=== PATIENT | male | born 2000 | race Caucasian/White ===

== ENCOUNTER → 2020-05-01 14:41 | Outpatient (BNVA) | payer OTHER, SELFPAY | PROVIDERS: PCP Pediatrics; Referring Provider Pediatrics; Visit Provider Physician Assistant | DX: K60.2 Anal fissure, unspecified (principal) | CPT/HCPCS: 99203 ==

== ENCOUNTER → 2020-05-19 14:51 | Outpatient (BNVA) | payer OTHER, SELFPAY | PROVIDERS: PCP Pediatrics; Referring Provider Pediatrics; Visit Provider Physician Assistant | DX: R19.5 Other fecal abnormalities (principal) | CPT/HCPCS: 99212 ==

== ENCOUNTER → 2020-08-25 14:40 | Outpatient (BNVA) | payer OTHER, SELFPAY | PROVIDERS: PCP Pediatrics; Referring Provider Pediatrics; Visit Provider Internal Medicine Gastroenterology ==

== ENCOUNTER 2021-06-25 14:14 | Outpatient (REF) | payer OTHER, SELFPAY | END 2021-06-25 14:15 | disposition home or self-care (01) | LOC: HO.LAB 14:14 | PROVIDERS: Visit Provider Internal Medicine | DX: Z20.822 Contact with and (suspected) exposure to COVID-19 (principal) | CPT/HCPCS: C9803; U0003; U0005 ==

== ENCOUNTER 2021-11-24 15:05 | Emergency (ER) | payer OTHER, SELFPAY ==
[2021-11-24 15:09] VITALS: BP 125/87; PULSE 100; RESP 18; TEMP 37.2; O2SAT 99; BMI 34.8
[2021-11-24 15:27] LABS: MANUAL DIFF FLAG NO
[2021-11-24 15:29] LABS: Appearance Urine HAZY; Color Urine YELLOW; Glucose Urine UA NEG (NEG); Leukocyte Esterase Urine NEG (NEG); Nitrite Urine NEG (NEG); PH 5.5 (5.0-8.0); Specific Gravity - Urine >= 1.030 (1.005-1.025); Urine Blood NEG (NEG); Urine Ketones NEG (NEG); Urine Protein NEG (NEG-TRACE)
[2021-11-24 15:31] LABS: Basophils Percent Auto 0.2 % (0-2); Eosinophils Absolute Auto 0.1 X10*3/uL (0.0-0.4); Eosinophils Percent Auto 0.8 % (0-4); Hemoglobin 15.7 g/dl (14.0-18.0); Imm Gran Abs Auto 0.05 X10*3/uL (0.00-0.03); Imm Gran Pct Auto 0.4 % (0.0-0.4); Lymphocytes Absolute Auto 0.8 X10*3/uL (1.2-4.9); Lymphocytes Percent Auto 6.3 % (20-40); Mean Corpuscular HGB Conc 33.4 g/dl (31.0-36.0); Mean Corpuscular Hemoglobin 30.2 pg (27.0-33.0); Mean Corpuscular Volume 90.4 fL (80.0-98.0); Monocytes Absolute Auto 0.5 X10*3/uL (0.1-1.2); Monocytes Percent Auto 3.6 % (2-11); Neutrophils Percent Auto 88.7 % (45-73); Platelet Count 223 X10*3/uL (160-400); Red Cell Distribution Width 11.9 % (11.0-16.0); White Blood Count 12.4 X10*3/uL (4.8-10.8)
[2021-11-24 15:45] LABS: Alanine Aminotransferase 30 U/L (0-40); Albumin Level 4.7 g/dL (3.5-5.0); Alkaline Phosphatase 64 U/L (39-117); Anion Gap 15 (12-20); Aspartate Amino Transferase 22 U/L (5-37); Bilirubin Direct 0.3 mg/dL (0.0-0.5); Bilirubin Total 0.9 mg/dL (0.0-1.0); Blood Urea Nitrogen 17 mg/dL (9-16); Calcium 9.8 mg/dL (8.4-10.2); Carbon Dioxide 20 mmol/L (22-29); Chloride 105 mmol/L (96-108); Creatinine Clr Calc Pharmacy 204.9; Estimated Glomerular Filt Rate > 60; Glucose Random 110 mg/dL (60-115); Lipase 11 U/L (8-78); Potassium 4.3 mmol/L (3.3-5.1); Sodium 136 mmol/L (135-145); Total Protein 8.1 g/dL (6.5-8.0)
[2021-11-24 15:47] LABS: COVID-19 Test Negative (Negative); IDNOW Serial# 16C4AD1C; IDNOW Serial# 9DB6401D; Influenza A Negative (Negative); Influenza B2 Negative (Negative)
--- NOTE | 2021-11-24 20:41 | PC.NURSE ---
Pt frustrated with wait time. Staff advising pt he is second in line to be seen. Staff also advising pt of high acuity within the ED. Staff apologizing for the delay. Pt provided with complaint line contact information by registration. Pt calling nursing inspecting supervisor from the parking lot regarding wait time. This RN explaining to nursing inspecting supervisor that pt has been notified he is second in line to come in but staff is delayed with a critical patient.
== END 2021-11-24 20:43 | disposition left against medical advice (07) ==
PROVIDERS: Emergency Provider Emergency Medicine
DX: R11.2 Nausea with vomiting, unspecified (principal); R19.7 Diarrhea, unspecified; Z79.899 Other long term (current) drug therapy; Z20.822 Contact with and (suspected) exposure to COVID-19
CPT/HCPCS: 80048; 80076; 81003; 83690; 85025; 87502; 87635; 99283

== ENCOUNTER 2022-12-18 09:40 | Emergency (ER) | payer OTHER, SELFPAY ==
[2022-12-18 09:45] VITALS: BP 119/77; PULSE 65; RESP 16; TEMP 36.3; O2SAT 97; BMI 26.7
--- NOTE | 2022-12-18 10:07 | ED.GENADULT ---
HPI - General Adult General Chief complaint: General Medical Stated complaint: Lump on Lower R back Time Seen by Provider: 12/18/22 09:52 Source: patient Mode of arrival: ambulatory Limitations: no limitations History of Present Illness HPI narrative: 22 yo male presents to the ER for evaluation of a painless bump in his right lower back. He noticed it about a week ago. 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 He states the area could be, uncomfortable when he is driving. He can feel a mobile type lump in his right lower back. No overlying skin changes. It is minimally tender. He denies any radiation of pain. No urinary symptoms. No falls or trauma. MD complaint: Painless mass to the right lower back Onset (ago): week(s) (1) Location: back Radiation: non-radiation Severity: mild Severity scale (1-10): 2 Quality: aching Pain Consistency: intermittent Relieving factors: none Exacerbating factors: none Associated symptoms: denies other symptoms Treatments prior to arrival: none Related Data Previous Rx's Medication Instructions Recorded acetaminophen 500 mg capsule 500 mg PO Q6H fever 5 days #20 caps 11/28/21 amoxicillin 500 mg capsule 500 mg PO TID 5 days #15 caps 11/28/21 ibuprofen 600 mg tablet 600 mg PO Q8H PRN fever or pain 12/18/22 #14 tabs Allergies Allergy/AdvReac Type Severity Reaction Status Date / Time No Known Allergies Allergy Verified 12/18/22 09:45 Review of Systems Review of Systems: Yes all other systems are reviewed and are negative [facility] Past Medical History Medical History (Updated 12/18/22 @ 10:06 by LOUISE Penaloza) No known health problems Rectal bleeding Surgical History No history of previous surgery Family History Family History Mother No problems noted. Father No problems noted. Social History Social History Household Members: Family Household Members Other:: Lives with mom Alcohol intake: never Advance Directives: No service: No Current occupational status: unemployed Physical Exam ED Vital Signs: Vital Signs - 24 hr 12/18/22 09:45 Temperature 97.4 F Pulse Rate 65 Respiratory Rate 16 Blood Pressure 119/77 Pulse Oximetry 97 Oxygen Delivery Method Room Air BMI result Body Mass Index 26.7 Appearance: Alert. Oriented X3. No acute distress. HEENT: normal inspection CVS: Normal heart rate and rhythm. Pulses normal. Respiratory: No respiratory distress. Skin: Skin warm and dry. Normal skin color. Normal skin turgor. No rashes. Back: Normal inspection, normal range of motion of the spine. There is a small all, approximately 2 cm x 3 cm area of soft tissue mobility of the right lower lumbar area adjacent to the paraspinous area, most consistent with a band of soft tissue muscle. No midline tenderness of the spine. No CVA tenderness. No skin changes. Extremities: normal inspection x4, normal range of motion, no joint swelling. Neuro: Oriented X 3. No motor deficit. No sensory deficit. Steady gait. Medical Decision Making Medical Decision Making MDM Narrative: 22-year-old otherwise healthy male presents to the ER for evaluation of a painless, soft tissue lump in his right lower back for the last 1 week. No trauma. Exam and clinical presentation are benign, most likely a soft tissue muscle band. Will treat with anti-inflammatories. He will follow up with primary care doctor as needed. He is stable for discharge home Differential Diagnosis Differential Diagnoses: The differential diagnosis associated with the presentation includes muscle strain and spasm, lipoma, tumor, soft tissue mass External Record Review External record reviewed: Prior outpatient labs Tests considered The following testing was considered but not selected: considered x-ray of the lumbar area however deferred as this is soft tissue Prescription Management I considered prescription management with: Pain Medication Critical Care Time Critical Care Time Critical Care Time: No Discharge Plan Discharge Clinical Impression: Soft tissue mass Patient Disposition: Home, Self-Care Instructions: Soft Tissue Mass (ED) Additional Instructions: Your exam today was consistent with a benign soft tissue mass of your right lower back. It is most consistent with a band of muscle. There was no evidence of concerning mass or infection. Recommend using ice or heat to the area, take the prescribed anti-inflammatories. Follow-up with your doctor. If you develop new or worsening symptoms call 911 or come back to the ER for further evaluation. Prescriptions: New ibuprofen 600 mg tablet 600 mg PO Q8H PRN (Reason: fever or pain) Qty: 14 0RF No Action amoxicillin 500 mg capsule 500 mg PO TID 5 Days Qty: 15 0RF acetaminophen 500 mg capsule 500 mg PO Q6H 5 Days Qty: 20 0RF
== END 2022-12-18 10:24 | disposition home or self-care (01) ==
PROVIDERS: Emergency Provider Emergency Medicine
DX: R22.2 Localized swelling, mass and lump, trunk (principal); Z79.899 Other long term (current) drug therapy
CPT/HCPCS: 99283

== ENCOUNTER 2023-04-22 15:48 | Outpatient (AMB) | payer OTHER, SELFPAY ==
[2023-04-22 15:57] VITALS: BP 124/70; PULSE 75; O2SAT 99; BMI 23.8
--- NOTE | 2023-04-22 15:57 | MHC.PC.OV ---
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 Allergies No Known Allergies Allergy (Verified 04/22/23 16:40) Medication List - Last Reconciled 04/22/23 by Abdi Lorenzana MD No Known Home Meds Dental Screening Dental Screen Date: 04/22/23 Did you have a dental visit in the last 12 months?: Yes Did you have a dental problem in the last 6 months where you did not have access to dental care?: No Was dental information given to patient?: Patient has dentist 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 HPI Details Patient comes in today for his annual physical examination and to establish care - is a new patient to the practice He is presently concerned about a palpable lump on his right lower back, which he states has been present for at least 3 to 4 months now He first went to the ER back in December 2022 for the same complaint when he first noticed it back then Was told then that it was most likely a tight band of muscle, which patient disagrees with as he states that it does not feel like a muscle the way it is rolling around when he presses on it States that the lump on his lower back does not really hurt or bother him but sometimes gets sore when he is sitting and leaning against a hard surface, which tend to press on the lump He denies any history of injury or trauma to his lower back but states that he does some heavy lifting at work at times and is concerned about his lower back and what the lump or cyst would indicate States that he feels well overall He denies any headaches or dizziness Denies any chest pains, no SOB No nausea/vomiting, no abdominal pain No change in bowel habits noted Denies any acute urinary symptoms PFSH Medical History (Updated 04/24/23 @ 14:53 by Abdi Lorenzana MD) Rectal bleeding Surgical History (Updated 04/22/23 @ 16:44 by Abdi Lorenzana MD) Hx of eye surgery Family History Mother No problems noted. Father No problems noted. Social History Household Members: Family Household Members Other:: Lives with mom Both parents involved: No Housing: House Alcohol intake: never Patient Tobacco Use Status: Never used Tobacco service: No Current occupational status: unemployed Cognitive needs: No Hearing needs: No Vision needs: No Questionnaire PHQ-9 Over the last 2 weeks, how often have you been bothered by any of the following problems? 1. Little interest or pleasure in doing things: not at all 2. Feeling down, depressed, or hopeless: not at all 3. Trouble falling or staying asleep, or sleeping too much: not at all 4. Feeling tired or having little energy: not at all 5. Poor appetite or overeating: not at all 6. Feeling bad about yourself - or that you are a failure or have let yourself or your family down: not at all 7. Trouble concentrating on things, such as reading the newspaper or watching television: not at all 8. Moving or speaking so slowly that other people could have noticed. Or the opposite - being so fidgety or restless that you have been moving around a lot more than usual: not at all 9. Thoughts that you would be better off or of hurting yourself in some way: not at all Total score: 0 Depression Screening Interpretation: Negative Depression Screening Done: Yes 93329 - PHQ-9 Billing: Yes Source: Developed by Drs. Bijan Rodas, Ginna Guy, Eleno Ann and colleagues, with an educational jill from [employer]. Thrive Questionnaire Date Thrive assessed: 04/22/23 I am a: Patient What is your living situation today?: I have a steady place to live Within the past 12 months, did the food you bought not last and you didn't have the money to get more?: Never true Within the past 12 months, did you worry whether your food would run out before you got money to buy more?: Never true Do you have trouble paying for medicines?: No Do you have trouble getting transportation to medical appointments?: No Do you have trouble paying your heating and electricity bill?: No Do you have trouble taking care of your child, family member or friend?: No Do you have trouble with day-to-day activities such as bathing, preparing meals, shopping, managing finances, etc.?: No Are you currently unemployed and looking for a job?: No Are you interested in more education?: No Please select the resources that you would like help with: None Currently or been in a relationship where the following occur: no concerns reported AUDIT C Alcohol Use Questionnaire (AUDIT-C) 1. How often do you have a drink containing alcohol?: Never 3. How often do you have six or more drinks on one occasion?: Never Total Score: 0 Score Reviewed/Action Taken: Yes GARFIELD-7 AMB Questionnaire GARFIELD-7 Date GARFIELD - 7 assessed: 04/22/23 Feeling nervous, anxious, or on edge: 0 = Not at all Not being able to stop or control worryin = Not at all Worrying too much about different things: 0 = Not at all Trouble relaxin = Not at all Being so restless that it is hard to sit still: 0 = Not at all Becoming easily annoyed or irritable: 0 = Not at all Feeling afraid as if something awful might happen: 0 = Not at all Total GARFIELD-7 score (0-4 normal; 5-9 mild; 10-14 moderate; 15-21 severe): 0 Source: Developed by Drs. Bijan Rodas, Ginna Guy, Eleno Ann and colleagues, with an educational jill from [employer]. Review of Systems Const Denies chills, Denies fatigue, Denies fever(s), Denies headache(s), Denies malaise and Denies weakness Eyes Denies blurry vision, Denies change in vision, Denies irritation and Denies itchy eyes ENT Denies dysphagia, Denies dizziness, Denies otalgia, Denies headache(s), Denies nasal congestion, Denies neck pain, Denies odynophagia and Denies sore throat Card Denies chest pain, Denies rapid heart rate, Denies irregular heart rhythm, Denies palpitations and Denies dyspnea Resp Denies chest congestion, Denies cough, Denies dyspnea and Denies wheezing GI Denies abdominal pain, Denies bloating, Denies constipation, Denies dysphagia, Denies heartburn, Denies diarrhea, Denies nausea, Denies odynophagia and Denies vomiting Denies hematuria, Denies difficulty urinating, Denies dysuria, Denies urinary frequency and Denies urinary urgency Musc Denies back pain, Denies arthralgias, Denies joint swelling, Denies muscle weakness and Denies neck pain Skin/Breast Details: palpable lump over the right lower back - see HPI Denies change in pigmentation, Denies lesions, Denies rash and Denies unusual bruising Neuro Denies dizziness, Denies headache(s), Denies paresthesias and Denies weakness Endo Denies fatigue and Denies palpitations Aller/Immun Denies itchy eyes and Denies wheezing Physical exam (Primary Care) Vital Signs: Last Vital Signs Pulse 75 04/22/23 15:57 BP 124/70 04/22/23 15:57 Pulse Ox 99 04/22/23 15:57 Oxygen Delivery Method Room Air 04/22/23 15:57 BMI result Body Mass Index 23.8 Tobacco/Smoking Status: Tobacco use Status Patient Tobacco Use Status Never used Tobacco 04/22/23 16:04 PHQ-9: PHQ-9 Score PHQ-9: Total score 0 04/24/23 10:44 Depression Screening Interpretation: Negative Thrive Assessment: Date of Thrive Assessment Date Thrive assessed 04/22/23 04/22/23 16:04 Currently or been in a relationship where the following occur: no concerns reported Const General: no acute distress, alert and awake Orientation/consciousness: patient oriented x3 HENMT Head: Yes normocephalic and Yes atraumatic Ears: external ears normal, TM's normal bilaterally and EAC's normal General nose exam: No nasal discharge present Face and sinus: Yes normal facial exam and Yes sinuses nontender Teeth and gingiva: dentition normal Throat: Yes posterior oropharynx normal and Yes tonsils normal (no TP congestion) Eyes Eyelids: Yes eyelids normal Conjunctivae: conjunctivae normal Pupils: Equal, round and reactive pupils present EOM: EOMs intact bilaterally Neck Neck: Yes no lymphadenopathy and Yes supple Thyroid: Thyroid normal Resp Auscultation: clear to auscultation bilaterally, no rales and no wheezes Cardio Rate: regular rate Rhythm: regular rhythm Heart sounds: no murmurs GI Palpation (GI): Soft to palpation, nontender and No hepatosplenomegaly present Auscultation: normal bowel sounds General: Yes no CVA tenderness Back/Spine/Pelvis Other: (+) palpable non-tender cyst over the right paraspinal area at the lower lumbar region Back: no CVA tenderness Thoracic/Lumbar Spine: thoracic and lumbar spine normal to inspection Skin Lesions: no lesions Rashes: no rashes Neuro General: patient oriented x3, moves all extremities, no focal motor deficits and CN's II-XI intact bilaterally Cranial nerves: Yes Equal, round and reactive pupils present Cognition (Neuro): normal cognition Gait exam (Neuro): Normal gait present Extrem General: Yes no clubbing, cyanosis or edema Assessment and Plan Assessment & Plan (1) Annual physical exam: Code(s): Z00.00 - Encounter for general adult medical examination without abnormal findings Plan: Check labs (2) Synovial cyst of lumbar facet joint: Code(s): M71.38 - Other bursal cyst, other site Plan: Patient is reassured that the cyst/lump that he feels over his right lower back is most likely a lumbar synovial cyst and that it is a benign finding with no clinical significance Advised that no intervention is necessary at this time and that the only time we would recommend consideration for surgical excision is when the cyst is bigger and is causing pain, mostly due to its size Have advised that given the fact the he has a lumbar synovial cyst, he should be aware to refrain from any heavy lifting as much as possible in the future and to always ask for help if he has to lift something heavy so as not to aggravate his lower back, which can then develop degenerative changes as he gets older Plan To return in 1 year for his next annual physical examination Orders: Orders TSH reflex Free T4 04/22/23. - Encounter for general adult medical examination without abnormal findings Complete Blood Count Auto Diff 04/22/23 Z. - Encounter for general adult medical examination without abnormal findings Comprehensive Met. Panel 04/22/23. - Encounter for general adult medical examination without abnormal findings UA CC w/rflx Micro + Cult 04/22/23 R30.0 - Dysuria, Z. - Encounter for general adult medical examination without abnormal findings Vitamin D 25-OH Total 04/22/23 E55.9 - Vitamin D deficiency, unspecified, Z. - Encounter for general adult medical examination without abnormal findings Cholesterol 04/22/23. - Encounter for general adult medical examination without abnormal findings Coding Level of Care Code New Pt Prev Care 18-39yr([id number] Diagnoses Annual physical exam Z00.00 Synovial cyst of lumbar facet joint M71.38
== END 2023-04-22 16:58 | disposition home or self-care (01) ==
PROVIDERS: PCP Internal Medicine; Visit Provider Internal Medicine
DX: Z00.00 Encounter for general adult medical examination without abnormal findings (principal); M71.38 Other bursal cyst, other site
CPT/HCPCS: 99385

== ENCOUNTER 2023-10-11 12:05 | Outpatient (REF) | payer OTHER, SELFPAY ==
[2023-10-11 12:23] LABS: MANUAL DIFF FLAG NO
[2023-10-11 12:49] LABS: Basophils Percent Auto 0.2 % (0-2); Eosinophils Absolute Auto 0.2 X10*3/uL (0.0-0.4); Eosinophils Percent Auto 3.2 % (0-4); Hematocrit 41.2 % (42.0-52.0); Hemoglobin 14.3 g/dl (14.0-18.0); Imm Gran Abs Auto 0.01 X10*3/uL (0.00-0.03); Imm Gran Pct Auto 0.2 % (0.0-0.4); Lymphocytes Absolute Auto 1.9 X10*3/uL (1.2-4.9); Lymphocytes Percent Auto 35.9 % (20-40); Mean Corpuscular HGB Conc 34.7 g/dl (31.0-36.0); Mean Corpuscular Hemoglobin 30.2 pg (27.0-33.0); Mean Corpuscular Volume 86.9 fL (80.0-98.0); Mean Platelet Volume 9.6 fL (9.4-12.4); Monocytes Absolute Auto 0.3 X10*3/uL (0.1-1.2); Monocytes Percent Auto 6.3 % (2-11); Neutrophils Absolute Auto 2.9 x10*3/uL (2.0-8.3); Neutrophils Percent Auto 54.2 % (45-73); Platelet Count 245 X10*3/uL (160-400); Red Blood Count 4.74 X10*6/uL (4.60-5.80); Red Cell Distribution Width 11.8 % (11.0-16.0); White Blood Count 5.4 X10*3/uL (4.8-10.8)
[2023-10-11 13:37] LABS: Alanine Aminotransferase 12 U/L (0-40); Albumin Level 4.5 g/dL (3.5-5.0); Alkaline Phosphatase 51 U/L (39-117); Anion Gap 12 (12-20); Aspartate Amino Transferase 16 U/L (5-37); Bilirubin Total 0.6 mg/dL (0.0-1.0); Blood Urea Nitrogen 14 mg/dL (9-16); Calcium 9.6 mg/dL (8.4-10.2); Carbon Dioxide 27 mmol/L (22-29); Chloride 106 mmol/L (96-108); Cholesterol 145 mg/dL (<200); Estimated Glomerular Filt Rate > 60; Glucose Random 91 mg/dL (60-115); Potassium 4.1 mmol/L (3.3-5.1); Sodium 141 mmol/L (135-145); Total Protein 7.5 g/dL (6.5-8.0)
[2023-10-11 13:42] LABS: Vitamin D 25-OH Total 8.7 ng/mL (>30)
[2023-10-11 13:55] LABS: Appearance Urine Clear; Color Urine Yellow; Glucose Urine UA Negative (Negative); Leukocyte Esterase Urine Negative (Negative); Nitrite Urine Negative (Negative); Specific Gravity - Urine >= 1.030 (1.005-1.025); Urine Blood Negative (Negative); Urine Ketones Negative (Negative); Urine Protein Negative (Neg-Trace)
== END 2023-10-11 12:06 | disposition home or self-care (01) ==
LOC: HO.LAB 12:05
PROVIDERS: PCP Internal Medicine; Visit Provider Internal Medicine
DX: Z00.00 Encounter for general adult medical examination without abnormal findings (principal); R30.0 Dysuria; E55.9 Vitamin D deficiency, unspecified
CPT/HCPCS: 36415; 80053; 81003; 82306; 82465; 84443; 85025

== ENCOUNTER 2024-05-31 11:35 | Emergency (ER) | payer OTHER, SELFPAY ==
[2024-05-31 11:46] VITALS: BP 130/88; PULSE 79; RESP 20; TEMP 36.8; O2SAT 97; BMI 24.4
--- NOTE | 2024-05-31 11:47 | ED.SKABFB ---
HPI - Skin/Abscess/Foreign Bdy General Chief complaint: Skin/Abscess/Foreign Body Stated complaint: buttock lump Time Seen by Provider: 05/31/24 13:24 Source: patient Mode of arrival: ambulatory Limitations: no limitations History of Present Illness ED Provider: Axel Keith PA-C HPI narrative: 24-year-old male presents the ER for evaluation of a painful ?lump? to his anal region that he noticed last night when he was at work. He reports he was at work when he noticed discomfort in his rectal area, noticed a bump that was very tender. He reports a couple of days ago he had bright red blood when he wipes on the toilet paper after having a bowel movement. He denies any recent constipation but did have to strain to have a bowel movement. He denies any recent rectal bleeding since a couple of days ago. No anal discharge. No abdominal pain, nausea, vomiting, diarrhea. No history of hemorrhoids in the past. MD complaint: lesion Onset (ago): hour(s) Location: buttocks Severity: severe Quality: stabbing and sharp Pain Consistency: constant Relieving factors: rest Exacerbating factors: movement Context: none Associated symptoms: denies other symptoms Treatments prior to arrival: none Related Data Previous Rx's ?Medication ?Instructions ?Recorded cholecalciferol (vitamin D3) 25 25 mcg PO DAILY #30 caps 03/27/24 mcg (1,000 unit) capsule docusate sodium 100 mg capsule 100 mg PO BID #30 caps 05/31/24 (Col-Rite) hydrocortisone 1 %-pramoxine 1 % 1 appl HI QID PRN hemorrhoids #10 05/31/24 rectal foam (Proctofoam HC) grams Allergies Allergy/AdvReac Type Severity Reaction Status Date / Time No Known Allergies Allergy Verified 05/31/24 11:49 Review of Systems Review of Systems: Yes all other systems are reviewed and are negative [facility] Past Medical History Medical History (Updated 05/31/24 @ 14:34 by LOUISE Penaloza) Rectal bleeding Surgical History (Updated 04/22/23 @ 16:44 by Abdi Lorenzana MD) Hx of eye surgery Family History Family History Mother No problems noted. Father No problems noted. Social History Social History Household Members: Family Household Members Other:: Lives with mom Housing: House Alcohol intake: never Patient Tobacco Use Status: Never used Tobacco Advance Directives: No Advance Directives Information Provided: No service: No Current occupational status: unemployed Cognitive needs: No Hearing needs: No Vision needs: No Physical Exam Vital Signs: Vital Signs: Last Vital Signs Temp 98.3 F 05/31/24 11:46 Pulse 79 05/31/24 11:46 Resp 20 05/31/24 11:46 BP 130/88 05/31/24 11:46 Pulse Ox 97 05/31/24 11:46 O2 Del Method Room Air 05/31/24 11:46 BMI result Body Mass Index 24.4 Appearance: Alert. Oriented X3. No acute distress. HEENT: normal inspection CVS: Normal heart rate and rhythm. Pulses normal. Respiratory: No respiratory distress. Skin: Skin warm and dry. Normal skin color. Normal skin turgor. No rashes. Rectal: There is a large approximately 1.5 cm non thrombosed, prolapsed hemorrhoid that does not easily reduced. No active bleeding. No evidence of rectal abscess or cellulitis Extremities: normal inspection x4, no joint swelling Neuro: Oriented X 3. Grossly normal, nonfocal. Course Course Course Narrative: This is a Rapid Medical Exam performed in triage by Miriam Harrell PA-C. Full HPI, ROS and PE to be performed by primary ED provider. 24yo M presenting to the ED c/o painful lump to rectal area x today, but noted bleeding to rectum a few days ago. Admits to painful BMs, sitting and position changes PE: area not evaluated in triage. Ambulating with antalgic gait Plan: ?I&D Medical Decision Making Medical Decision Making MDM Narrative: 24-year-old male presents the ER for evaluation of a painful lump in his anal region after having bright red blood per rectum a couple of days ago. Exam and clinical presentation are most consistent with a non thrombosed hemorrhoid. Will prescribe topical treatments, and have him follow up with the PCP, possible surgery for removal if no improvement with lifestyle modifications. We discussed other symptomatic care including Sitz baths, dietary modifications, other topical treatments. He is stable for discharge home with outpatient follow-up. Differential Diagnosis Differential Diagnoses: The differential diagnosis associated with the presentation includes Internal hemorrhoid, external hemorrhoid, rectal abscess, foreign body External Record Review External record reviewed: Outpatient record and Prior outpatient labs Tests considered The following testing was considered but not selected: CT scan of the abdomen/pelvis with contrast was considered however there is low clinical suspicion for rectal abscess Prescription Management I considered prescription management with: Pain Medication Critical Care Time Critical Care Time Critical Care Time: No Discharge Plan Discharge Clinical Impression: Hemorrhoid Qualifiers: Hemorrhoid type: unspecified Qualified Code(s): K64.9 - Unspecified hemorrhoids Patient Disposition: Home, Self-Care Instructions: Hemorrhoids (DC), Sitz Bath (DC), Hemorrhoidectomy (DC) Additional Instructions: Lifestyle changes:?Eat more fiber, drink more water, and avoid straining during bowel movements.? Sitz baths:?Sit in a few inches of warm water in a plastic tub several times a day.? Topical treatments:?Apply [id number] creams, ointments, or suppositories that contain hydrocortisone, lidocaine, or witch ailyn.? Pain relievers:?Take [id number] pain relievers or nonsteroidal anti-inflammatory drugs (NSAIDs).? Stool softeners:?Take stool softeners to reduce constipation and straining.? Ice packs:?Use ice packs to reduce swelling.? Toilet paper:?Use toilet paper with lotion or flushable wipes to gently clean the area Follow up with General Surgery for possible removal/banding if you have ongoing symptoms depsite treatment. If you develop new or worsening symptoms call 911 or come back to the ER for further evaluation. Prescriptions: New Proctofoam HC 1-1 % foam 1 appl HI QID PRN (Reason: hemorrhoids) Qty: 10 1RF docusate sodium [Col-Rite] 100 mg capsule 100 mg PO BID Qty: 30 0RF No Action cholecalciferol (vitamin D3) 25 mcg (1,000 unit) capsule 25 mcg PO DAILY Qty: 30 3RF Referrals: Abdi Lorenzana MD [Primary Care Provider] - Camden Ocasio MD [Physician] - (large hemorrhoid) Stand Alone Forms: Work/School Release Print Language: Frisian
[2024-05-31 14:37] VITALS: BP 123/73; PULSE 70; RESP 14; TEMP 36.6; O2SAT 98
== END 2024-05-31 14:48 | disposition home or self-care (01) ==
PROVIDERS: Emergency Provider Student in an Organized Health Care Education/Training Program; PCP Internal Medicine
DX: K64.9 Unspecified hemorrhoids (principal)
CPT/HCPCS: 99283

== ENCOUNTER 2024-06-01 15:34 | Outpatient (AMB) | payer OTHER, SELFPAY ==
[2024-06-01 15:37] VITALS: BP 120/78; PULSE 89; O2SAT 98; BMI 21.7
--- NOTE | 2024-06-01 15:37 | MHC.PC.OV ---
Vital Signs 06/01/24 15:37 Height 6 ft Weight 160 lb BMI 21.7 BP 120/78 Blood Pressure Location Lt brachial Position Sitting Pulse 89 Pulse Source Pulse Oximeter Pulse Oximetry (%) 98 Oxygen Delivery Method Room Air Intake Visit Reasons: back pain Dextrine Mixer Required: No Accompanied by: Self / Same As Patient Allergies No Known Allergies Allergy (Verified 06/01/24 15:38) Tobacco use date assessed: 06/01/24 Dental Screening Dental Screen Date: 06/01/24 Did you have a dental visit in the last 12 months?: Yes Did you have a dental problem in the last 6 months where you did not have access to dental care?: No Was dental information given to patient?: Patient has dentist HPI back pain HPI Details The patient is a 24-year-old male presenting with hemorrhoids. The patient reported that he visited the emergency room yesterday, where he was diagnosed with hemorrhoids and prescribed medication to address the condition. The hemorrhoid is causing considerable discomfort, impacting his ability to walk and sit without experiencing pain. The patient has difficulty with sitting and walking due to the discomfort caused by the hemorrhoid. He also experienced rectal bleeding a few days ago, which he associates with straining during bowel movements. The patient performs heavy lifting at his job at [employer], which he believes may have aggravated his condition. The patient was advised to use the prescribed medication (Proctofoam) for at least a week but preferably for 10 to 14 days. The patient is unsure about returning to work due to the physical demands of his job and is seeking guidance on the duration of leave required. The use of stool softeners and dietary modifications were discussed as preventive measures. He also adds that he feels some cysts on his lower back and is concerned that these may be contributing to his on and off low back pain although he states that his lower back currently feels okay [facility] Medical History (Updated 06/01/24 @ 16:24 by Abdi Lorenzana MD) Hemorrhoid Rectal bleeding Surgical History Hx of eye surgery Family History Mother No problems noted. Father No problems noted. Social History Household Members: Family Household Members Other:: Lives with mom Both parents involved: No Housing: House Alcohol intake: never Patient Tobacco Use Status: Never used Tobacco e-Cigarette/Vaping Use: Never Used service: No Current occupational status: unemployed Cognitive needs: No Hearing needs: No Vision needs: No Questionnaire PHQ-9 Over the last 2 weeks, how often have you been bothered by any of the following problems? 1. Little interest or pleasure in doing things: not at all 2. Feeling down, depressed, or hopeless: not at all 3. Trouble falling or staying asleep, or sleeping too much: not at all 4. Feeling tired or having little energy: not at all 5. Poor appetite or overeating: not at all 6. Feeling bad about yourself - or that you are a failure or have let yourself or your family down: not at all 7. Trouble concentrating on things, such as reading the newspaper or watching television: not at all 8. Moving or speaking so slowly that other people could have noticed. Or the opposite - being so fidgety or restless that you have been moving around a lot more than usual: not at all 9. Thoughts that you would be better off or of hurting yourself in some way: not at all Total score: 0 Depression Screening Interpretation: Negative Depression Screening Done: Yes 90095 - PHQ-9 Billing: Yes Source: Developed by Drs. Bijan Rodas, Ginna Guy, Eleno Ann and colleagues, with an educational jill from [employer]. Thrive Questionnaire Date Thrive assessed: 06/01/24 I am a: Patient What is your living situation today?: I have a steady place to live Within the past 12 months, did the food you bought not last and you didn't have the money to get more?: Never true Within the past 12 months, did you worry whether your food would run out before you got money to buy more?: Never true Do you have trouble paying for medicines?: No Do you have trouble getting transportation to medical appointments?: No Do you have trouble paying your heating and electricity bill?: No Do you have trouble taking care of your child, family member or friend?: No Do you have trouble with day-to-day activities such as bathing, preparing meals, shopping, managing finances, etc.?: No Are you currently unemployed and looking for a job?: No Are you interested in more education?: No Please select the resources that you would like help with: None Currently or been in a relationship where the following occur: No concerns reported THRIVE Score: 0 AUDIT C Alcohol Use Questionnaire (AUDIT-C) 1. How often do you have a drink containing alcohol?: Never 3. How often do you have six or more drinks on one occasion?: Never Total Score: 0 Score Reviewed/Action Taken: Yes GARFIELD-7 AMB Questionnaire GARFIELD-7 Date GARFIELD - 7 assessed: 06/01/24 Feeling nervous, anxious, or on edge: 0 = Not at all Not being able to stop or control worryin = Not at all Worrying too much about different things: 0 = Not at all Trouble relaxin = Not at all Being so restless that it is hard to sit still: 0 = Not at all Becoming easily annoyed or irritable: 0 = Not at all Feeling afraid as if something awful might happen: 0 = Not at all Total GARFIELD-7 score (0-4 normal; 5-9 mild; 10-14 moderate; 15-21 severe): 0 Source: Developed by Drs. Bijan Rodas, Ginna Guy, Eleno Ann and colleagues, with an educational jill from [employer]. Review of Systems Const Denies chills, Denies fatigue, Denies fever(s) and Denies headache(s) ENT Denies dysphagia, Denies dizziness, Denies otalgia, Denies headache(s), Denies neck pain, Denies odynophagia and Denies sore throat Card Denies chest pain, Denies irregular heart rhythm, Denies palpitations and Denies dyspnea Resp Denies chest congestion, Denies cough and Denies dyspnea GI Denies abdominal pain, Reports hematochezia (over the past few days - due to hemorrhoids), Denies constipation, Denies dysphagia, Denies heartburn, Denies diarrhea, Denies nausea, Denies odynophagia and Denies vomiting Denies difficulty urinating, Denies dysuria and Denies urinary frequency Musc Reports back pain (on and off), Denies arthralgias and Denies neck pain Skin/Breast Details: palpable lumps/cysts over the lower back bilaterally Denies rash Neuro Denies dizziness, Denies headache(s) and Denies paresthesias Endo Denies fatigue and Denies palpitations Physical exam (Primary Care) Vital Signs: Last Vital Signs Pulse 89 06/01/24 15:37 BP 120/78 06/01/24 15:37 Pulse Ox 98 06/01/24 15:37 Oxygen Delivery Method Room Air 06/01/24 15:37 BMI result Body Mass Index 21.7 Tobacco/Smoking Status: Tobacco use Status Tobacco use date assessed 06/01/24 06/01/24 15:46 Patient Tobacco Use Status Never used Tobacco 06/01/24 15:46 e-Cigarette/Vaping Use Never Used 06/01/24 15:46 PHQ-9: PHQ-9 Score PHQ-9: Total score 0 06/01/24 15:46 Depression Screening Interpretation: Negative Thrive Assessment: Date of Thrive Assessment Date Thrive assessed 06/01/24 06/01/24 15:46 Currently or been in a relationship where the following occur: No concerns reported Const General: no acute distress and alert HENMT Throat: Yes posterior oropharynx normal and Yes tonsils normal (no TP congestion) Neck Neck: Yes no lymphadenopathy and Yes supple Thyroid: Thyroid normal Resp Auscultation: clear to auscultation bilaterally, no rales and no wheezes Cardio Rate: regular rate Rhythm: regular rhythm Heart sounds: no murmurs GI Palpation (GI): Soft to palpation and nontender Auscultation: normal bowel sounds General: Yes no CVA tenderness Back/Spine/Pelvis Other: (+) palpable small non-tender cysts over the lower lumbar region at the paraspinal areas bilaterally Back: no CVA tenderness Thoracic/Lumbar Spine: No lumbar spinal tenderness Skin Rashes: no rashes Extrem General: Yes no clubbing, cyanosis or edema Coding Level of Care Code Est Pt Level 3 (28778) Diagnoses Hemorrhoid K64.9 Hemorrhoid type: unspecified Synovial cyst of lumbar facet joint M71.38 Additional Codes PHQ-9 - 73206 - PHQ-9 Billing: Yes ([id number]) Assessment & Plan Assessment & Plan (1) Hemorrhoid: Code(s): K64.9 - Unspecified hemorrhoids Category: Medical Qualifiers: Hemorrhoid type: unspecified Qualified Code(s): K64.9 - Unspecified hemorrhoids Plan: Continue Proctofoam HC ND QID - advised to use this for at least 10 days to make sure his hemorrhoids are completely calmed down and the swelling/inflammation subsides Have also recommended that he take some stool softeners as needed when he gets constipated, as increased straining during BM can easily aggravate his hemorrhoid(s) again I have advised patient to try taking off for at least a week and avoid any heavy lifting for a while; can return to work in a week if he can but would still advised refraining fro heavy lifting for at least a couple of more weeks (2) Synovial cyst of lumbar facet joint: Code(s): M71.38 - Other bursal cyst, other site Category: Medical Plan: Have reassured patient that these are benign and are not actual cysts but are structures adjacent to the lumbar spine Reinforced activity and weight-lifting restrictions, at least for now Plan To return in 2 to 3 months for his annual physical examination
== END 2024-06-01 16:17 | disposition home or self-care (01) ==
PROVIDERS: PCP Internal Medicine; Visit Provider Internal Medicine
DX: K64.9 Unspecified hemorrhoids (principal); M71.38 Other bursal cyst, other site

== ENCOUNTER → 2024-06-01 15:34 | Outpatient (BNVA) | payer OTHER, SELFPAY | PROVIDERS: PCP Internal Medicine; Visit Provider Internal Medicine | DX: K64.9 Unspecified hemorrhoids (principal); M71.38 Other bursal cyst, other site | CPT/HCPCS: 96127; 99212 ==

== ENCOUNTER 2024-06-20 13:45 | Outpatient (AMB) | payer OTHER, SELFPAY ==
[2024-06-20 13:46] VITALS: BMI 21.7
--- NOTE | 2024-06-20 13:46 | A.OFFVIS_ITS ---
Vital Signs 06/20/24 13:46 Height 6 ft Weight 160 lb 0.008 oz BMI 21.7 Intake Visit Reasons: Hemorrhoids Intake Note: [place] [facility] [facility] [place]. Pt c/o; reports some relief from the proctofoam and colace, reports no rectal bleeding. 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 He says that about 2 weeks ago, he noticed a ?swollen hemorrhoid? which was uncomfortable. He says that he could feel this at the anal opening. He mentioned this to his primary care physician. He was referred to me. He says that he feels that the discomfort has been improving steadily the past few days. He denies any bleeding. He denies any severe pain. He denies being constipated although he does take some stool softeners. He does admit to occasional straining with bowel movements. [facility] Medical History Hemorrhoid Rectal bleeding Surgical History Hx of eye surgery Family History Mother No problems noted. Father No problems noted. Social History Household Members: Family Household Members Other:: Lives with mom Both parents involved: No Housing: House Alcohol intake: never Patient Tobacco Use Status: Never used Tobacco e-Cigarette/Vaping Use: Never Used service: No Current occupational status: unemployed Cognitive needs: No Hearing needs: No Vision needs: No Review of Systems Const Denies chills and Denies fever(s) Card Denies chest pain, Denies dyspnea and Denies dyspnea on exertion Resp Denies cough, Denies dyspnea and Denies dyspnea on exertion GI Denies hematochezia and Denies change in bowel habits Denies hematuria and Denies difficulty urinating Musc Denies back pain and Denies limited range of motion Neuro Denies focal weakness and Denies convulsions Psych Denies depression and Denies mood swings Physical Exam Vital Signs: BMI result Body Mass Index 21.7 Const General: comfortable and no acute distress Orientation/consciousness: patient oriented x3 Neck Neck: Yes no lymphadenopathy Resp Auscultation: clear to auscultation bilaterally Cardio Rhythm: regular rhythm GI Other: Rectal exam does not reveal any large external hemorrhoid. He was not able to tolerate digital exam and anoscopy because of discomfort Palpation (GI): Soft to palpation, nontender and no guarding Neuro General: patient oriented x3 Office Procedures Anoscopy He was in masha-knife position. The anoscope was gently inserted. A full examination of the anal canal was done. [id number] Assessment & Plan Assessment & Plan (1) Hemorrhoid: Code(s): K64.9 - Unspecified hemorrhoids Category: Medical Qualifiers: Hemorrhoid type: unspecified Qualified Code(s): K64.9 - Unspecified hemorrhoids Plan: He was referred to me by the ER because of complains of a painful hemorrhoid. He was in the ER 2 weeks ago. He says that his discomfort has been improving significantly. However, he was unable to tolerate digital exam or anoscopy so was unable to examined the anal canal I did tell him that I would like to see him again next month to be able to do the full exam. He is amenable to this. I will see him therefore after 1 month. Coding Level of Care Code New Pt Level 3 (75429) Diagnoses Hemorrhoid K64.9 Hemorrhoid type: unspecified CPT Codes Details - CPT: 37707-[id number] ([id number])
== END 2024-06-20 14:02 | disposition home or self-care (01) ==
PROVIDERS: PCP Internal Medicine; Visit Provider Surgery
DX: K64.9 Unspecified hemorrhoids (principal)
CPT/HCPCS: 46600; 99203

== ENCOUNTER → 2024-06-20 13:45 | Outpatient (BNVA) | payer OTHER, SELFPAY | PROVIDERS: PCP Internal Medicine; Visit Provider Surgery | DX: K64.9 Unspecified hemorrhoids (principal) | CPT/HCPCS: 46600; 99202 ==

== ENCOUNTER 2024-09-05 16:05 | Outpatient (AMB) | payer OTHER, SELFPAY ==
--- OUTSIDE RECORDS SUMMARY | 2024-09-05 16:07 | XMS_ITS | Encounter Summary ---
Author Organization [facility] Address [address] [place] [address] Phone Care Team Providers Care Passenger Attendant Name Role Phone Joanna Henry MD Primary Care Provider [phone]- [phone] Encounter Details Date Type Department Care Team (Late st Contact Info) Description 05/25/2016 Documentation [facility] [place] Family Medicine [address] [place] [address] Family Medicine, Physician [address] [place], [place] [id number] Social History Tobacco Use Types Packs/Day Years Used Date Smoking Tobacco: Never Assessed Sex and Gender Information Value Date Recorded Sex Assigned at Not on file Legal Sex Male 5:24 PM EDT Gender Identity Male 11/25/2021 5:54 PM EDT Sexual Orientation Straight 04/29/2020 2: 37 PM EDT documented as of this encounter Plan of Treatment Not on file documented as of this encounter Visit Diagnoses Not on filedocumented in this encounter Care Teams Passenger Attendant Relationship Specialty Start Date End Date Joanna Henry MD [address] [place] [address] [place]ON Olivares [address] PCP - General 02/25/17 10/28/22 documented as of this encounter
--- OUTSIDE RECORDS SUMMARY | 2024-09-05 16:07 | XMS_ITS | Encounter Summary ---
Author Organization [facility] Address [address] [place] [phone] Phone Care Team Providers Care Social Work Instructor Name Role Phone Joanna Henry MD Primary Care Provider [phone]- [phone] Encounter Details Date Type Department Care Team (Late st Contact Info) Description 05/13/2011 Documentation [facility] [place] [address] [place] [address] Family Medicine, Physician [address] [place], [place] [phone] Social History Tobacco Use Types Packs/Day Years [...] on filedocumented in this encounter Care Teams Social Work Instructor Relationship Specialty Start Date End Date Joanna Henry MD [address] [place] [address] [place] Olivares [address] PCP - General 02/25/17 10/28/22 documented as of this encounter
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
--- OUTSIDE RECORDS SUMMARY | 2024-09-05 16:07 | XMS_ITS | Encounter Summary ---
Author Organization [facility] Address [address] [place] [address] Phone Care Team Providers Care Wharf Attendant Name Role Phone Joanna Henry MD Primary Care Provider Encounter Details Date Type Department Care Team ([facility] Contact Info) Description 03/03/2017 Conversion Encounter [facility] [place] [address] [place] [address] Social History Tobacco Use Types Packs/Day Years Used Date Smoking Tobacco: Never Comments:Never smoker Sex and Gender Information Value Date Recorded Sex Assigned at Not on file Legal Sex Male 5:24 PM EDT Gender Identity Male 11/25/2021 5:54 PM EDT Sexual Orientation Straight 04/29/2020 2: 37 PM EDT documented as of this encounter Plan of Treatment Not on file documented as of this encounter Visit Diagnoses Not on filedocumented in this encounter Care Teams Wharf Attendant Relationship Specialty Start Date End Date Joanna Henry MD [address] [place] [address] PCP - General 02/25/17 10/28/22 documented as of this encounter
--- OUTSIDE RECORDS SUMMARY | 2024-09-05 16:07 | XMS_ITS | Encounter Summary ---
Author Organization [facility] Address [address] [place] [address] Phone Care Team Providers Care Skoog Machine Operator Name Role Phone Joanna Henry MD Primary Care Provider [phone]- [phone] Encounter Details Date Type Department Care Team (Late st Contact Info) Description 10/21/2016 Documentation [facility] [place] [address] [place] [address] Family Medicine, Physician [facility] [place], [place] [phone] Social History Tobacco Use Types Packs/Day Years [...] on filedocumented in this encounter Care Teams Skoog Machine Operator Relationship Specialty Start Date End Date Joanna Henry MD [address] [place] [address] [place] Omalley [address] PCP - General 02/25/17 10/28/22 documented as of this encounter
--- OUTSIDE RECORDS SUMMARY | 2024-09-05 16:07 | XMS_ITS | Encounter Summary ---
Author Organization [facility] Address [address] [place] [phone] Phone Care Team Providers Care Director Of Patient Safety Name Role Phone Joanna Henry MD Primary Care Provider [phone] Encounter Details Date Type Department Care Team (Late st Contact Info) Description 11/13/2009 Documentation [facility] [place] [facility] [address] [place] [address] Family Medicine, Physician [address] [place], [place] [phone] Social History Tobacco Use Types Packs/Day Years [...] on filedocumented in this encounter Care Teams Director Of Patient Safety Relationship Specialty Start Date End Date Joanna Henry MD [address] [place] [address] TH[place]ON Olivares [id number] PCP - General 02/25/17 10/28/22 documented as of this encounter
--- OUTSIDE RECORDS SUMMARY | 2024-09-05 16:07 | XMS_ITS | Encounter Summary ---
Author Organization [facility] Address [address] [place] [phone] Phone Care Team Providers Care Retail Support Associate Name Role Phone Joanna Henry MD Primary Care Provider [phone] Encounter Details Date Type Department Care Team (Late st Contact Info) Description 09/30/2015 Documentation [facility] [place] [address] [place] [address] Family Medicine, Physician [address] [place], [place] [phone] Social History Tobacco Use Types Packs/Day Years [...] on filedocumented in this encounter Care Teams Retail Support Associate Relationship Specialty Start Date End Date Joanna Henry MD [address] [place] [address] TH[place] Olivares [id number] PCP - General 02/25/17 10/28/22 documented as of this encounter
--- NOTE | 2024-09-05 16:11 | A.OFFPC_ITS ---
Intake Visit Reasons: annual exam Allergies No Known Allergies Allergy (Verified 06/20/24 13:52) Tobacco use date assessed: 06/01/24 Dental Screening Dental Screen Date: 06/01/24 [facility]LY [facility] Medical History Hemorrhoid Rectal bleeding Surgical History Hx of eye surgery Family History Mother No problems noted. Father No problems noted. Social History Household Members: Family Household Members Other:: Lives with mom Both parents involved: No Housing: House Alcohol intake: never Patient Tobacco Use Status: Never used Tobacco e-Cigarette/Vaping Use: Never Used service: No Current occupational status: unemployed Cognitive needs: No Hearing needs: No Vision needs: No Questionnaire PHQ-9 Over the last 2 weeks, how often have you been bothered by any of the following problems? 1. Little interest or pleasure in doing things: several days 2. Feeling down, depressed, or hopeless: not at all 3. Trouble falling or staying asleep, or sleeping too much: not at all 4. Feeling tired or having little energy: not at all 5. Poor appetite or overeating: not at all 6. Feeling bad about yourself - or that you are a failure or have let yourself or your family down: not at all 7. Trouble concentrating on things, such as reading the newspaper or watching television: not at all 8. Moving or speaking so slowly that other people could have noticed. Or the opposite - being so fidgety or restless that you have been moving around a lot more than usual: not at all 9. Thoughts that you would be better off or of hurting yourself in some way: not at all Total score: 1 Source: Developed by Drs. Bijan Rodas, Ginna Guy, Eleno Ann and colleagues, with an educational jill from [employer]. Thrive Questionnaire Date Thrive assessed: 06/01/24 I am a: Patient What is your living situation today?: I have a steady place to live Within the past 12 months, did the food you bought not last and you didn't have the money to get more?: Never true Within the past 12 months, did you worry whether your food would run out before you got money to buy more?: Never true Do you have trouble paying for medicines?: No Do you have trouble getting transportation to medical appointments?: No Do you have trouble paying your heating and electricity bill?: No Do you have trouble taking care of your child, family member or friend?: No Do you have trouble with day-to-day activities such as bathing, preparing meals, shopping, managing finances, etc.?: No Are you currently unemployed and looking for a job?: Yes Are you interested in more education?: No Please select the resources that you would like help with: None Currently or been in a relationship where the following occur: No concerns reported THRIVE Score: 0 AUDIT C Alcohol Use Questionnaire (AUDIT-C) 1. How often do you have a drink containing alcohol?: Monthly or less 2. How many drinks containing alcohol do you have on a typical day when you are drinking?: 1 or 2 3. How often do you have six or more drinks on one occasion?: Never Total Score: 1 GARFIELD-7 AMB Questionnaire GARFIELD-7 Date GARFIELD - 7 assessed: 06/01/24 Feeling nervous, anxious, or on edge: 0 = Not at all Not being able to stop or control worryin = Not at all Worrying too much about different things: 0 = Not at all Trouble relaxin = Not at all Being so restless that it is hard to sit still: 0 = Not at all Becoming easily annoyed or irritable: 0 = Not at all Feeling afraid as if something awful might happen: 0 = Not at all Total GARFIELD-7 score (0-4 normal; 5-9 mild; 10-14 moderate; 15-21 severe): 0 Source: Developed by Drs. Bijan Rodas, Ginna Guy, Eleno Ann and colleagues, with an educational jill from [employer]. Physical exam (Primary Care) Tobacco/Smoking Status: Tobacco use Status Tobacco use date assessed 06/01/24 06/01/24 16:16 Patient Tobacco Use Status Never used Tobacco 06/01/24 16:16 e-Cigarette/Vaping Use Never Used 06/01/24 16:16 Thrive Assessment: Date of Thrive Assessment Date Thrive assessed 06/01/24 06/01/24 16:16 Currently or been in a relationship where the following occur: No concerns reported Coding
[2024-09-05 16:12] VITALS: BP 110/76; PULSE 66; TEMP 36.6; O2SAT 99; BMI 22.9
--- NOTE | 2024-09-05 16:12 | A.OFFPC_ITS ---
Vital Signs 09/05/24 16:12 Height 6 ft Weight 169 lb 2 oz BMI 22.9 BP 110/76 Blood Pressure Location Lt brachial Position Sitting Pulse 66 Pulse Source Pulse Oximeter Temp 98 F Temp Source Temporal Artery Scan Pulse Oximetry (%) 99 Oxygen Delivery Method Room Air Intake Visit Reasons: annual exam Assistant Center Manager Required: No Accompanied by: Self / Same As Patient Allergies No Known Allergies Allergy (Verified 09/05/24 16:19) Medication List - Last Reconciled 09/05/24 by REE Preciado cholecalciferol (vitamin D3) (Vitamin D3) 25 mcg PO DAILY docusate sodium (Col-Rite) 100 mg PO BID hydrocortisone-pramoxine 1-1 % (Proctofoam HC) 1 appl LA QID PRN Tobacco use date assessed: 09/05/24 Dental Screening Dental Screen Date: 09/05/24 HPI annual exam HPI Details Dentist: up to date Eye: up to date Snellen: Right: Left: Corrected vision:n/a STI screening:n/a Colonoscopy:n/a Pap Smer:n/a Flu: declines COVID:x2, no boosters Tdap:given in office Diet: regular Exercise: no really The patient is a 24-year-old male who was presenting today for annual physical No recent labs to review with patient. We will order a set of labs to complete the patient's physical Encourage patient to get his labs done as soon as possible Patient is up-to-date on his screenings, but is declining most vaccines [facility] Medical History Hemorrhoid Rectal bleeding Surgical History Hx of eye surgery Family History Mother No problems noted. Father No problems noted. Social History Household Members: Family Household Members Other:: Lives with mom Both parents involved: No Housing: House Alcohol intake: never Patient Tobacco Use Status: Never used Tobacco e-Cigarette/Vaping Use: Never Used service: No Current occupational status: unemployed Cognitive needs: No Hearing needs: No Vision needs: No Questionnaire PHQ-9 Over the last 2 weeks, how often have you been bothered by any of the following problems? 1. Little interest or pleasure in doing things: not at all 2. Feeling down, depressed, or hopeless: not at all 3. Trouble falling or staying asleep, or sleeping too much: not at all 4. Feeling tired or having little energy: not at all 5. Poor appetite or overeating: not at all 6. Feeling bad about yourself - or that you are a failure or have let yourself or your family down: not at all 7. Trouble concentrating on things, such as reading the newspaper or watching television: not at all 8. Moving or speaking so slowly that other people could have noticed. Or the opposite - being so fidgety or restless that you have been moving around a lot more than usual: not at all 9. Thoughts that you would be better off or of hurting yourself in some way: not at all Total score: 0 Depression Screening Interpretation: Negative Depression Screening Done: Yes 06158 - PHQ-9 Billing: Yes Source: Developed by Drs. Bijan Rodas, Ginna Guy, Eleno Ann and colleagues, with an educational jill from [employer]. Thrive Questionnaire Date Thrive assessed: 09/05/24 I am a: Patient What is your living situation today?: I have a steady place to live Within the past 12 months, did the food you bought not last and you didn't have the money to get more?: Never true Within the past 12 months, did you worry whether your food would run out before you got money to buy more?: Never true Do you have trouble paying for medicines?: No Do you have trouble getting transportation to medical appointments?: No Do you have trouble paying your heating and electricity bill?: No Do you have trouble taking care of your child, family member or friend?: No Do you have trouble with day-to-day activities such as bathing, preparing meals, shopping, managing finances, etc.?: No Are you currently unemployed and looking for a job?: Yes Are you interested in more education?: No Please select the resources that you would like help with: None Currently or been in a relationship where the following occur: No concerns reported THRIVE Score: 0 AUDIT C Alcohol Use Questionnaire (AUDIT-C) 1. How often do you have a drink containing alcohol?: Monthly or less 2. How many drinks containing alcohol do you have on a typical day when you are drinking?: 1 or 2 3. How often do you have six or more drinks on one occasion?: Never Total Score: 1 GARFIELD-7 AMB Questionnaire GARFIELD-7 Date GARFIELD - 7 assessed: 09/05/24 Feeling nervous, anxious, or on edge: 0 = Not at all Not being able to stop or control worryin = Not at all Worrying too much about different things: 0 = Not at all Trouble relaxin = Not at all Being so restless that it is hard to sit still: 0 = Not at all Becoming easily annoyed or irritable: 0 = Not at all Feeling afraid as if something awful might happen: 0 = Not at all Total GARFIELD-7 score (0-4 normal; 5-9 mild; 10-14 moderate; 15-21 severe): 0 Source: Developed by Drs. Bijan Rodas, Ginna Guy, Eleno Ann and colleagues, with an educational jill from [employer]. GARFIELD-7 Assessment Billing GARFIELD-7 Assessment Tool: GARFIELD-7 Assessment 40348 Review of Systems Const Details: Denies chills, Denies fatigue, Denies fever(s), Denies headache(s) and Denies weakness HEENT Denies change in vision, Denies dizziness, Denies headache(s), Denies hearing loss, Denies nasal congestion, Denies sinus pain, Denies sinus pressure and Den ies sore throat Card Denies chest pain, Denies lightheadedness, Denies dyspnea and Denies other (palpitations) Resp Denies cough, Denies dyspnea and Denies wheezing GI Denies abdominal pain, Denies melena, Denies hematochezia, Denies change in bowel habits, Denies dyspepsia and Denies nausea Denies hematuria and Denies dysuria Musc Denies abnormal gait, Denies myalgias, Denies arthralgias, Denies numbness and Denies tingling Skin/Breast Denies rash, Denies unusual bruising and Denies wounds Neuro Denies abnormal gait, Denies dizziness, Denies headache(s), Denies memory loss, Denies numbness, Denies Sensory deficit (Neuro), Denies tingling and Denies weakness Psych Denies anxiety, Denies depression and Denies memory loss Endo Denies cold intolerance, Denies fatigue, Denies heat intolerance, Denies polydipsia and Denies polyuria Edward/Lymph Denies easy bleeding and Denies easy bruising Aller/Immun Denies wheezing Physical exam (Primary Care) Vital Signs: Last Vital Signs Temp 98 F 09/05/24 16:12 Pulse 66 09/05/24 16:12 BP 110/76 09/05/24 16:12 Pulse Ox 99 09/05/24 16:12 Oxygen Delivery Method Room Air 09/05/24 16:12 BMI result Body Mass Index 22.9 Tobacco/Smoking Status: Tobacco use Status Tobacco use date assessed 09/05/24 09/05/24 16:14 Patient Tobacco Use Status Never used Tobacco 09/05/24 16:14 e-Cigarette/Vaping Use Never Used 09/05/24 16:14 PHQ-9: PHQ-9 Score PHQ-9: Total score 0 09/05/24 16:29 Depression Screening Interpretation: Negative Thrive Assessment: Date of Thrive Assessment Date Thrive assessed 09/05/24 09/05/24 16:14 Currently or been in a relationship where the following occur: No concerns reported Const Other: General: no acute distress, well developed, alert and awake Nutritional Appearance: well nourished Orientation/consciousness: patient oriented x3 HENMT Head: Yes normocephalic and Yes atraumatic Ears: hearing grossly normal bilaterally and TM's normal bilaterally General nose exam: Normal external nose present and Normal nares present Mouth: Normal oral and palatal mucosa present and moist mucous membranes Teeth and gingiva: dentition normal Throat: Yes oropharynx normal Eyes Pupils: Equal, round and reactive pupils present and Pupil accommodation reflex normal EOM: EOMs intact bilaterally Neck Neck: Yes normal visual inspection, Yes no lymphadenopathy and Yes trachea midline Thyroid: Thyroid normal Carotids: no bruits Lymphatic: no lymphadenopathy noted Chest Chest palpation & inspection: normal inspection of the chest Resp Effort & Inspection: normal respiratory effort Auscultation: clear to auscultation bilaterally Cardio Rate: regular rate Rhythm: regular rhythm Heart sounds: S1 normal heart sound present, S2 normal heart sound present, no gallops, no murmurs and no rubs Bruits: no abdominal aortic bruits and no carotid bruits GI Palpation (GI): No Abdominal aortic bruit present, Soft to palpation, nontender, No hepatosplenomegaly present and No Rebound tenderness present Auscultation: normal bowel sounds General: Yes no CVA tenderness Back/Spine/Pelvis Back: no CVA tenderness Cervical Spine: cervical ROM normal and No Cervical spine tenderness Thoracic/Lumbar Spine: thoraco-lumbar ROM normal, No pain with thoraco-lumbar ROM, No thoracic spinal tenderness and No lumbar spinal tenderness Skin General: warm and dry. Normal skin color. Normal skin turgor Lesions: no lesions Rashes: no rashes Trauma: no lacerations or abrasions Wounds: no wounds Nails: normal Neuro General: patient oriented x3, gait normal and CN's II-XI intact bilaterally Cranial nerves: Yes Equal, round and reactive pupils present Cognition (Neuro): normal cognition Gait exam (Neuro): Normal gait present Motor exam (neuro): 5/5 motor strength present throughout Sensory Exam: No Sensory deficit (Neuro) Deep tendon reflexes (DTR's): Right patellar reflex intensity grade: 2+ and Left patellar reflex intensity grade: 2+ Extrem General: Yes normal to inspection, No edema and No calf tenderness Psych Appearance: grossly normal Affect: normal affect Attitude: cooperative Thought process: Normal thought process present Office Procedures Flu Questionnaire Does the patient have a severe egg allergy?: No Immunizations Fluarix Triv [id number] (PF) 45 mcg (15 mcg x 3)/0.5 mL IM syringe Performing Provider: REE Preciado [place] [facility] [place] [facility] Documented (not given) by: KATE Lucio on 09/05/24 16:17 Reason Not Given: Patient Refused Boostrix Tdap 2.5 Lf unit-8 mcg-5 Lf/0.5 mL intramuscular syringe Performing Provider: REE Preciado Performing Location: [facility] Administered by: KATE Lucio on 09/05/24 16:29 Dose Route Admin Location Dispensed Lot Number Expiration Date [facility] Spray Gun Sizer 0.5 mL IM Right Deltoid 0.5 mL [id number] 10/06/26 [id number] [employer] VIS Given Date VIS Provided VIS Publication Date 09/05/24 Single Vaccine 21 Eligibility Eligibility Date Funding Source Not [facility] [employer] Eligible 09/05/24 Private Coding Level of Care Code Est Pt Prev Care 18-39y([id number]) Diagnoses Annual physical exam Z00.00 Pityriasis rosea L42 Anal fissure K60.2 Rectal bleeding K62.5 Vitamin D deficiency E55.9 Additional Codes GARFIELD-7 Assessment Billing - GARFIELD-7 Assessment Tool: GARFIELD-7 Assessment 06045 ([id number]) PHQ-9 - 78292 - PHQ-9 Billing: Yes ([id number]) Time Spent (min) 35 Assessment & Plan Assessment & Plan (1) Annual physical exam: Code(s): Z00.00 - Encounter for general adult medical examination without abnormal findings Category: Medical Plan: Patient is up-to-date on all age related screenings. He declined the flu vaccine. Reports that he took the 1st 2 of the COVID vaccines but is not interested in any other COVID vaccines. The tetanus shot was given in office today. No recent labs to review. A set of labs was ordered in encouraged the patient to get these done as soon as possible. (2) Pityriasis rosea: Code(s): L42 - Pityriasis rosea Category: Medical Plan: Stable. Reports that he has not had an issue in a while (3) Anal fissure: Comment: pleasant 20-year-old male follows up after the ED for rectal bleeding after straining for the, diagnosed rectal fissure. he has had no further rectal bleeding. Taking MiraLax daily good response with BM. Blood work done within ED no anemia. he reportedly has had no further symptoms- and will report any change Code(s): K60.2 - Anal fissure, unspecified Category: Medical Plan: Stable. Continue Colace 100 mg p.o. b.i.d. hydrocortisone-pramoxine 1-1% PRN QID PRN (4) Rectal bleeding: Code(s): K62.5 - Hemorrhage of anus and rectum Category: Medical Plan: SAME ABOVE (5) Vitamin D deficiency: Code(s): E55.9 - Vitamin D deficiency, unspecified Category: Medical Plan: Continue cholecalciferol 25 mcg daily Orders: Orders Influenza [id number] Immunization 09/05/24 Z23 - Encounter for immunization Comprehensive [place]. Panel Fast 09/05/24 B00.2 - Herpesviral gingivostomatitis and pharyngotonsillitis, Z00.00 - Encounter for general adult medical examination without abnormal findings Lipid Panel 09/05/24 B00.2 - Herpesviral gingivostomatitis and pharyngotonsillitis, Z00.00 - Encounter for general adult medical examination without abnormal findings Glucose Fasting 09/05/24 B00.2 - Herpesviral gingivostomatitis and pharyngotonsillitis, Z00.00 - Encounter for general adult medical examination without abnormal findings UA CC w/rflx Micro + Cult 09/05/24 B00.2 - Herpesviral gingivostomatitis and pharyngotonsillitis, Z00.00 - Encounter for general adult medical examination without abnormal findings Complete Blood Count Auto Diff 09/05/24 B00.2 - Herpesviral gingivostomatitis and pharyngotonsillitis, Z00.00 - Encounter for general adult medical examination without abnormal findings TSH reflex Free T4 09/05/24 B00.2 - Herpesviral gingivostomatitis and pharyngotonsillitis, Z00.00 - Encounter for general adult medical examination without abnormal findings Vitamin D 25-OH Total 09/05/24 B00.2 - Herpesviral gingivostomatitis and pharyngotonsillitis, Z00.00 - Encounter for general adult medical examination without abnormal findings TDaP Immunization 09/05/24 Z23 - Encounter for immunization
== END 2024-09-05 16:36 | disposition home or self-care (01) ==
PROVIDERS: PCP Internal Medicine
DX: Z00.00 Encounter for general adult medical examination without abnormal findings (principal); L42 Pityriasis rosea; K60.2 Anal fissure, unspecified; K62.5 Hemorrhage of anus and rectum; E55.9 Vitamin D deficiency, unspecified

== ENCOUNTER → 2024-09-05 16:05 | Outpatient (BNVA) | payer OTHER, SELFPAY | PROVIDERS: PCP Internal Medicine | DX: Z00.00 Encounter for general adult medical examination without abnormal findings (principal); Z23 Encounter for immunization; L42 Pityriasis rosea; K60.2 Anal fissure, unspecified; K62.5 Hemorrhage of anus and rectum; E55.9 Vitamin D deficiency, unspecified | CPT/HCPCS: 90471; 90715; 96127; 99395 ==

== ENCOUNTER 2025-03-07 11:06 | Emergency (ER) | payer MEDICAID, SELFPAY ==
--- NOTE | ~2025-03-07 | XR_ITS ---
EXAMINATION: XR CHEST CLINICAL INFORMATION: L sided pain with inspiration COMPARISON: None available. TECHNIQUE: 2 views of the chest were obtained. FINDINGS: No significant abnormality is noted involving the heart, lungs, mediastinum, bony thorax or soft tissues. XR/XR chest 2V IMPRESSION: No acute disease Electronically signed by: Gian Gramajo MD 03/07/2025 11:31 AM EDT RP
[2025-03-07 11:08] VITALS: BP 137/84; PULSE 75; RESP 18; TEMP 36.6; O2SAT 98; BMI 27.3
--- NOTE | 2025-03-07 11:11 | ED.GENADULT ---
HPI - General Adult General Chief complaint: General Medical Stated complaint: l side rib area pain when breaths Time Seen by Provider: 03/07/25 11:30 Source: patient Mode of arrival: ambulatory Limitations: no limitations History of Present Illness ED Provider: Dr. Josue [facility] narrative: This is a healthy 25-year-old male presented hospital today for a left lower chest pain. Patient stated this pleuritic in nature. Patient stated started 3 days ago. He noted that he was taking shots prior to the chest pain. He stated this chest pain is achy in nature worsened when he takes a deep breath in and out. Denies any shortness of breath. Denies any coughing currently. Denies any recent illness. Denies any hemoptysis, recent surgery, recent travel, leg swelling Related Data Previous Rx's ?Medication ?Instructions ?Recorded docusate sodium 100 mg capsule 100 mg PO BID #30 caps 05/31/24 (Col-Rite) hydrocortisone 1 %-pramoxine 1 % 1 appl IN QID PRN hemorrhoids #10 05/31/24 rectal foam (Proctofoam HC) grams cholecalciferol (vitamin D3) 25 25 mcg PO DAILY #90 caps 06/30/24 mcg (1,000 unit) capsule (Vitamin D3) Allergies Allergy/AdvReac Type Severity Reaction Status Date / Time No Known Allergies Allergy Verified 03/07/25 11:10 Review of Systems Review of Systems: Pertinent review of systems as mentioned in [facility]. All other system otherwise negative. [facility]LY [facility] Past Medical History [facility] Narrative: Medical history as mentioned in [facility] Medical History Hemorrhoid Rectal bleeding Surgical History Hx of eye surgery Family History Family History Mother No problems noted. Father No problems noted. Social History Social History Household Members: Family Household Members Other:: Lives with mom Housing: House Alcohol intake: never Patient Tobacco Use Status: Never used Tobacco e-Cigarette/Vaping Use: Never Used Advance Directives: No Advance Directives Information Provided: Yes Do you have a plan to hurt others: No Plan service: No Current occupational status: unemployed Cognitive needs: No Hearing needs: No Vision needs: No Physical Exam ED Exam Exam: General: Pleasant, no distress, interacting appropriately Head: Normacephalic, atraumatic ENT: oral mucosa moist, neck supple, no tracheal deviation Cardiovascular: regular rate, regular rhythm, no murmurs, rubbing, gallops Respiratory: CTAB, no wheeze, rales, rhonchi Gastrointestinal: Soft, non distended, non tender, non guarding Neurological: Awake and alert, no facial droop noted Skin: Warm and dry Psychiatric: Appropriate mood and thoughts Vital Signs: Vital Signs - 24 hr 03/07/25 11:08 Temperature 97.8 F Pulse Rate 75 Respiratory Rate 18 Blood Pressure 137/84 Pulse Oximetry 98 Oxygen Delivery Method Room Air BMI result Body Mass Index 27.3 Course Course Course Narrative: This is a rapid medical exam performed by Blayne Seymour NP: Additional HPI, ROS, PE not included below will be deferred to primary provider. Patient is a 25-year-old male presenting to the emergency department with complaint of pain to left lower rib area with deep inspiration for the past 2 days. Denies cough. States symptoms began after drinking a shot of alcohol. Plan: Labs, x-ray Medications Administered Discontinued Medications Generic Name Dose Route Start Last Admin Trade Name Freq PRN Reason Stop Dose Admin Al Hydroxide/Mg Hydroxide 30 ml 03/07/25 11:57 03/07/25 12:24 Magnesium Hydrox/Alum Hydrox 30 Ml Oral.Susp PO 03/07/25 11:58 30 ml ONCE ONE Administration Lidocaine HCl 15 ml 03/07/25 11:57 03/07/25 12:24 Lidocaine Hcl Viscous 2 % 15 Ml Solution MUCOUS MEM 03/07/25 11:58 15 ml ONCE ONE Administration Medical Decision Making Medical Decision Making MDM Narrative: This is a 25-year-old male presented hospital today for pleuritic chest pain in the left side for the past 4 days. I suspect patient may have underlying pleurisy versus costochondritis may be secondary from smoking. Patient does admit to smoking. The patient is PERC out. Low suspicion of PE. This is atypical chest pain. I think less likely ACS. However we will obtain ACS workup including EKG chest x-ray CBC BNP troponin. Patient stated that he was taking shots prior to his chest pain. We will plan to give patient GI cocktail and see if this will help with his pain. His lungs does not sound diminished or wheezing. I do not think his asthma. He is breathing comfortably. No change with the GI cocktail however patient's troponin is negative. No sign of STEMI on patient's EKG. We will plan to discharge patient at this time I suspect this may be costochondritis or pleurisy. Patient is low risk for PE due to PERC rule. Encouraged the patient to follow up with his primary care doctor. He agrees and understands this plan. Encouraged around the clock usage Of ibuprofen Tylenol as well. Differential Diagnosis Differential Diagnoses: The differential diagnosis associated with the presentation includes ACS, costochondritis, pleurisy, asthma Lab Data MDM Lab Attestation statement: I reviewed the patient's lab results. 03/07/25 11:18 03/07/25 11:18 Labs: Lab Results 03/07/25 Range/Units 11:18 WBC 7.6 (4.8-10.8) X10*3/uL RBC 4.74 (4.60-5.80) X10*6/uL Hgb 14.3 (14.0-18.0) g/dl Hct 40.9 L (42.0-52.0) % MCV 86.3 (80.0-98.0) fL MCH 30.2 (27.0-33.0) pg MCHC 35.0 (31.0-36.0) g/dl RDW 11.9 (11.0-16.0) % Plt Count 229 (160-400) X10*3/uL MPV 9.2 L (9.4-12.4) fL Immature Gran % (Auto) 0.3 (0.0-0.4) % Neut % (Auto) 67.4 (45-73) % Lymph % (Auto) 22.6 (20-40) % [place] % (Auto) 7.9 (2-11) % Eos % (Auto) 1.5 (0-4) % Baso % (Auto) 0.3 (0-2) % Lymph # (Auto) 1.7 (1.2-4.9) X10*3/uL [place] # (Auto) 0.6 (0.1-1.2) X10*3/uL Eos # (Auto) 0.1 (0.0-0.4) X10*3/uL Baso # (Auto) 0.0 (0.0-0.2) X10*3/uL Abs Immat Gran (auto) 0.02 (0.00-0.03) X10*3/uL Absolute Neuts (auto) 5.1 (2.0-8.3) x10*3/uL Absolute Nucleated RBC 0.000 (0.0-0.012) X10*3/uL Nucleated RBC % (auto) 0.0 (0.0-0.2) /100WBC PT 11.5 (10.9-12.4) SEC INR 1.0 (0.9-1.1) Sodium 138 (135-145) mmol/L Potassium 4.1 (3.3-5.1) mmol/L Chloride 105 (96-108) mmol/L Carbon Dioxide 25 (22-29) mmol/L Anion Gap 12 (12-20) BUN 13 (9-16) mg/dL Creatinine 0.66 (0.5-1.4) mg/dL Estim Creat Clear Calc 182.2 Estimated GFR > 60 Random Glucose 98 (60-115) mg/dL Calcium 9.1 (8.4-10.2) mg/dL Total Bilirubin 0.8 (0.0-1.0) mg/dL AST 28 (5-37) U/L ALT 27 (0-40) U/L Alkaline Phosphatase 53 (39-117) U/L Troponin I High Sens < 2.7 (<3.5-35.0) ng/L Total Protein 7.6 (6.5-8.0) g/dL Albumin 4.9 (3.5-5.0) g/dL Lipase 16 (8-78) U/L Independent Interpretation I performed an independent interpretation of an: EKG and Plain X-Ray Radiology Impression Discussion of test interpretation with radiology: I have reviewed the radiologist's reading. Discharge Plan Discharge Clinical Impression: Pleurisy Patient Disposition: Home, Self-Care Additional Instructions: Please follow-up with your primary care doctor. You may take Tylenol 1000 mg every 8 hours or ibuprofen 400 mg every 8 hours. You can get these [id number]. Watch for any signs of stomachaches from ibuprofen. If you begin to have these you can cut back on the ibuprofen. This should improve over the course of a week or 2. Avoid further smoking avoid any excessive alcohol use as well. Prescriptions: No Action cholecalciferol (vitamin D3) [Vitamin D3] 25 mcg (1,000 unit) capsule 25 mcg PO DAILY Qty: 90 1RF Proctofoam HC 1-1 % foam 1 appl IN QID PRN (Reason: hemorrhoids) Qty: 10 1RF docusate sodium [Col-Rite] 100 mg capsule 100 mg PO BID Qty: 30 0RF Print Language: Sao T[place]an
[2025-03-07 11:23] LABS: MANUAL DIFF FLAG NO
[2025-03-07 11:26] LABS: Hematocrit 40.9 % (42.0-52.0); Hemoglobin 14.3 g/dl (14.0-18.0); Imm Gran Abs Auto 0.02 X10*3/uL (0.00-0.03); Imm Gran Pct Auto 0.3 % (0.0-0.4); Lymphocytes Absolute Auto 1.7 X10*3/uL (1.2-4.9); Mean Corpuscular HGB Conc 35.0 g/dl (31.0-36.0); Mean Corpuscular Hemoglobin 30.2 pg (27.0-33.0); Mean Corpuscular Volume 86.3 fL (80.0-98.0); NRBC Abs Auto 0.000 X10*3/uL (0.0-0.012); NRBC Pct Auto 0.0 /100WBC (0.0-0.2); Platelet Count 229 X10*3/uL (160-400); Red Blood Count 4.74 X10*6/uL (4.60-5.80); White Blood Count 7.6 X10*3/uL (4.8-10.8)
[2025-03-07 11:30] LABS: INTERNATIONAL NORM RATIO 1.0 (0.9-1.1); Prothrombin Time 11.5 SEC (10.9-12.4)
[2025-03-07 11:37] LABS: Alanine Aminotransferase 27 U/L (0-40); Albumin Level 4.9 g/dL (3.5-5.0); Alkaline Phosphatase 53 U/L (39-117); Anion Gap 12 (12-20); Aspartate Amino Transferase 28 U/L (5-37); Blood Urea Nitrogen 13 mg/dL (9-16); Calcium 9.1 mg/dL (8.4-10.2); Carbon Dioxide 25 mmol/L (22-29); Chloride 105 mmol/L (96-108); Creatinine Clr Calc Pharmacy 182.2; Estimated Glomerular Filt Rate > 60; Lipase 16 U/L (8-78); Potassium 4.1 mmol/L (3.3-5.1); Sodium 138 mmol/L (135-145); Total Protein 7.6 g/dL (6.5-8.0)
--- NOTE | 2025-03-07 11:39 | ECG_ITS ---
Test Reason : SOB Blood Pressure : */* mmHG Vent. Rate : 67 BPM Atrial Rate : 67 BPM P-R Int : 186 ms QRS Dur : 100 ms QT Int : 404 ms P-R-T Axes : 36 50 26 degrees QTcB Int : 426 ms Normal sinus rhythm with sinus arrhythmia Normal ECG When compared with ECG of 12-May-2011 14:37, MANUAL COMPARISON REQUIRED PREVIOUS ECG IS INCOMPATIBLE Referred By: Evelin Josue Electronically Signed By: CHATA LAWRENCE MD
[2025-03-07 12:24] LABS: Troponin-I High Sensitivity < 2.7 ng/L (<3.5-35.0)
[2025-03-07] MEDS: Lidocaine HCl Viscous 2 % 15 ML SOLUTION MUCOUS MEM (12:24)
[2025-03-07] MEDS: Magnesium Hydrox/Alum Hydrox 30 ML ORAL.SUSP PO (12:24)
[2025-03-07 12:51] VITALS: BP 137/84; PULSE 75; RESP 18; TEMP 36.6; O2SAT 98
== END 2025-03-07 12:51 | disposition home or self-care (01) ==
PROVIDERS: Registered Nurse Emergency; Emergency Provider Student in an Organized Health Care Education/Training Program; PCP Internal Medicine
DX: R09.1 Pleurisy (principal)
CPT/HCPCS: 36415; 71046; 80053; 83690; 84484; 85025; 85610; 93005; 99283

== ENCOUNTER → 2025-03-07 11:11 | Outpatient (BNV) | payer SELFPAY | PROVIDERS: Emergency Provider Student in an Organized Health Care Education/Training Program; PCP Internal Medicine; Visit Provider Radiology Diagnostic Radiology | DX: R07.89 Other chest pain (principal) | CPT/HCPCS: 71046 ==

== ENCOUNTER → 2025-03-07 11:39 | Outpatient (BNV) | payer SELFPAY | PROVIDERS: Emergency Provider Student in an Organized Health Care Education/Training Program; PCP Internal Medicine; Visit Provider Internal Medicine Cardiovascular Disease | DX: R06.02 Shortness of breath (principal) | CPT/HCPCS: 93010 ==

== ENCOUNTER 2025-04-17 08:07 | Emergency (ER) | payer OTHER, SELFPAY ==
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
[2025-04-17 08:10] VITALS: BP 135/77; PULSE 72; RESP 18; TEMP 36.7; O2SAT 98; BMI 27.2
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
[2025-04-17 09:02] VITALS: BP 135/77; PULSE 72; RESP 18; TEMP 36.7; O2SAT 98
--- OUTSIDE RECORDS SUMMARY | 2025-04-17 09:20 | XMS_ITS | Encounter Summary ---
Author Organization [facility] Address [address] [place] [phone] Phone Care Team Providers Care Holistic Pulser Name Role Phone Joanna Henry MD Primary Care Provider [phone] Encounter Details Date Type Department Care Team (Late st Contact Info) Description 11/13/2009 Documentation [facility] [place] Family Medicine [address] [place] [address] Family Medicine, Physician [address] [place], [place] [phone] Social History Tobacco Use Types Packs/Day Years [...] on filedocumented in this encounter Care Teams Holistic Pulser Relationship Specialty Start Date End Date Joanna Henry MD [address] [place] [address] [place] Olivares [id number] PCP - General 02/25/17 10/28/22 documented as of this encounter
--- OUTSIDE RECORDS SUMMARY | 2025-04-17 09:21 | XMS_ITS | Encounter Summary ---
Author Organization [facility] Address [address] [place] [address] Phone Care Team Providers Care Vinyl Flooring Installer Name Role Phone Joanna Henry MD Primary Care Provider [phone]- [phone] Encounter Details Date Type Department Care Team (Late st Contact Info) Description 05/25/2016 Documentation [facility] [place] Medicine [address] [place] [address] Family Medicine, Physician [address] [place] [phone] Social History Tobacco Use Types Packs/Day Years [...] on filedocumented in this encounter Care Teams Vinyl Flooring Installer Relationship Specialty Start Date End Date Joanna Henry MD [address] [place] [address] [place] [id number] PCP - General 02/25/17 10/28/22 documented as of this encounter
--- OUTSIDE RECORDS SUMMARY | 2025-04-17 09:21 | XMS_ITS | Encounter Summary ---
Author Organization [facility] Address [address] [place] [address] Phone Care Team Providers Care Livestock Nutrition Territory Manager Name Role Phone Joanna Henry MD Primary Care Provider [phone]- [phone] Encounter Details Date Type Department Care Team ([facility] Contact Info) Description 03/03/2017 Conversion Encounter [facility] [place] [address] [place] [address] Social History Tobacco Use Types Packs/Day Years [...] on filedocumented in this encounter Care Teams Livestock Nutrition Territory Manager Relationship Specialty Start Date End Date Joanna Henry MD [address] [place] [address] PCP - General 02/25/17 10/28/22 documented as of this encounter
--- OUTSIDE RECORDS SUMMARY | 2025-04-17 09:21 | XMS_ITS | Encounter Summary ---
Author Organization [facility] Address [address] [place] [phone] Phone Care Team Providers Care Classroom Teacher Name Role Phone Joanna Henry MD Primary Care Provider [phone]- [phone] Encounter Details Date Type Department Care Team (Late st Contact Info) Description 10/21/2016 [place]ation [facility] [place] [address] [place] [address] Family Medicine, Physician [facility] [place] [phone] Social History Tobacco Use Types Packs/Day Years [...] on filedocumented in this encounter Care Teams Classroom Teacher Relationship Specialty Start Date End Date Joanna Henry MD [address] [place] [address] [place]ares [id number] PCP - General 02/25/17 10/28/22 documented as of this encounter
--- OUTSIDE RECORDS SUMMARY | 2025-04-17 09:21 | XMS_ITS | Encounter Summary ---
Author Organization [facility] Address [address] [place] [phone] Phone Care Team Providers Care Manager Contracting Name Role Phone Joanna Henry MD Primary Care Provider [phone]- [phone] Encounter Details Date Type Department Care Team (Late st Contact Info) Description 09/30/2015 Documentation [facility] [place] Family Medicine [address] [place] [address] Family Medicine, Physician [address] [place] [phone] Social History Tobacco Use Types Packs/Day Years [...] on filedocumented in this encounter Care Teams Manager Contracting Relationship Specialty Start Date End Date Joanna Henry MD [address] [place] [address] [place] Olivares [id number] PCP - General 02/25/17 10/28/22 documented as of this encounter
--- OUTSIDE RECORDS SUMMARY | 2025-04-17 09:21 | XMS_ITS | Encounter Summary ---
Author Organization [facility] Address [address] [place] [phone] Phone Care Team Providers Care Door To Door Fundraising Collector Name Role Phone Joanna Henry MD Primary Care Provider [phone]- [phone] Encounter Details Date Type Department Care Team (Late st Contact Info) Description 05/13/2011 Documentation [facility] [place] Medicine [address] [place] [address] Family Medicine, Physician [address] [place], [place] [phone] Social History Tobacco Use Types Packs/Day Years [...] on filedocumented in this encounter Care Teams Door To Door Fundraising Collector Relationship Specialty Start Date End Date Joanna Henry MD [address] [place] [address] [place] Olivares [id number] PCP - General 02/25/17 10/28/22 documented as of this encounter
--- OUTSIDE RECORDS SUMMARY | 2025-04-17 09:21 | XMS_ITS | Clinical Summary ---
Author Organization [facility] Address [address] [place] [id number] Phone Care Team Providers Care Production Potter Name Role Phone Unavailable Primary Care Provider [...] 69 04/29/2020 2:13 PM EDT Temperature 36 C (96.8 F) 04/29/2020 2:13 PM EDT Respiratory Rate - [...] 11/13/2001, Additional history exists Influenza Vaccines (#1) 2025 04/29/20, 06/22/2017, 10/01/2016, Additional history exists COVID-19 Vaccine (2024-08 6 season) 2025 05/18/2021, 04/17/2021 Hepatitis B Vaccines Completed 01/06/2001, [...] Men B Vaccine Completed 04/29/2020, 05/24/2018 Insurance [facility] NON [facility]
[2025-04-17 10:55] VITALS: BP 135/77; PULSE 72; RESP 18; TEMP 36.7; O2SAT 98
== END 2025-04-17 10:59 | disposition home or self-care (01) ==
PROVIDERS: Emergency Provider Emergency Medicine; PCP Internal Medicine
DX: S00.83XA Contusion of other part of head, initial encounter (principal); Y04.2XXA Assault by strike against or bumped into by another person, initial encounter; Y93.89 Activity, other specified; Y92.008 Other place in unspecified non-institutional (private) residence as the place of occurrence of the external cause; Y99.9 Unspecified external cause status; R51.9 Headache, unspecified; M54.2 Cervicalgia
CPT/HCPCS: 70450; 70486; 72125; 99284

== ENCOUNTER → 2025-04-17 08:20 | Outpatient (BNV) | payer OTHER, SELFPAY | PROVIDERS: Emergency Provider Emergency Medicine; PCP Internal Medicine; Visit Provider Radiology Diagnostic Radiology | DX: Z04.3 Encounter for examination and observation following other accident (principal); R22.0 Localized swelling, mass and lump, head; R11.10 Vomiting, unspecified; Y09 Assault by unspecified means | CPT/HCPCS: 70450; 70486; 72125 ==